=== PATIENT | male | born 1950 | race Caucasian/White ===

== ENCOUNTER 2025-05-27 11:43 | Inpatient (IN) | payer MEDICARE ==
[~2025-05-27] VITALS: Ht 182.9 cm; Wt 89.4 kg
[2025-05-27] MEDS ORDERED: INDO50CA92 PO (11:57)
[2025-05-27] MEDS ORDERED: ROSU10TA29 PO (11:57)
[2025-05-27] MEDS ORDERED: NORT25CA PO (11:57)
[2025-05-27] MEDS ORDERED: [UNRECOGNIZED DRUG - CODE] PO (11:57)
[2025-05-27] MEDS ORDERED: OLME20TA23 PO (11:57)
[2025-05-27] MEDS ORDERED: LAMO200T10 PO (11:57)
[2025-05-27 12:11] LABS: PLATELET COUNT (AUTO) 200 K/uL (152-348); RED BLOOD CELL COUNT(AUTO) 4.82 MIL/uL (4.06-5.63); RED CELL DISTRIBUTION WIDTH 15.1 % (12.1-16.2); WHITE BLOOD COUNT (AUTO) 5.2 K/uL (3.6-10.2)
[2025-05-27 12:19] LABS: CREATININE 1.0 mg/dL (0.6-1.3); SODIUM SERUM 140 mmol/L (136-145); UREA NITROGEN, BLOOD 22 mg/dL (7-18)
[2025-05-27] MEDS ORDERED: DILTIAZEM HCL 25 MG IV IV ONE (12:30)
[2025-05-27] MEDS ORDERED: DILTIAZEM HCL 25 MG IV ONE (12:32)
[2025-05-27] MEDS: DILTIAZEM HCL 25 MG IV IV ONE (12:39)
[2025-05-27 12:42] VITALS: BP 136/86
[2025-05-27] MEDS ORDERED: REMEDY ESSENTIAL ZINC PASTE 113 GM TP PRN (14:30)
[2025-05-27] MEDS ORDERED: MAGNESIUM HYDROXIDE 30 ML LIQUID UDC PO PRN (14:30)
[2025-05-27] MEDS ORDERED: ONDANSETRON 4 MG/2 ML VIAL IV PRN (14:30)
[2025-05-27] MEDS ORDERED: DOSING PER PHARMACY-ENOXAPARIN XX PRN (14:30)
[2025-05-27] MEDS: FUROSEMIDE 40 MG/4 ML VIAL IV SCH (15:15)
[2025-05-27] MEDS: DILTIAZEM HCL 30 MG TABLET PO SCH (15:15)
[2025-05-27 15:20] VITALS: BP 122/87; TEMP 98.4; O2SAT 96
[2025-05-27] MEDS: ACETAMINOPHEN 325 MG TABLET PO PRN (16:31)
[2025-05-27] MEDS: ENOXAPARIN SODIUM 100 MG/ML DISP.SYRIN SQ SCH (16:32)
[2025-05-27] MEDS ORDERED: ALBU6.7H9 IH (16:40)
[2025-05-27] MEDS ORDERED: ALBUTEROL SULFATE 8 GM HFA.AER.AD IH PRN (18:45)
[2025-05-27 19:45] VITALS: BP 114/68; TEMP 97.9; O2SAT 96
[2025-05-27] MEDS: ATORVASTATIN 20 MG TABLET PO SCH (20:39)
[2025-05-27] MEDS ORDERED: AMIODARONE HCL 150 MG/3 ML VIAL IV ONE ×2 (23:42→23:44)
[2025-05-27] MEDS: AMIODARONE HCL IV 150 MG in IV DEXTROSE 5% 100 ML IV ONE (23:53)
[2025-05-27 23:56] VITALS: BP 127/89; TEMP 98.6; O2SAT 95
[2025-05-28] MEDS: AMIODARONE HCL IV 450 MG in IV DEXTROSE 5% 250 ML IV PRN (00:24)
[2025-05-28] MEDS: ZOLPIDEM 5 MG TABLET PO PRN (02:12)
[2025-05-28 04:11] VITALS: BP 125/89; TEMP 97.5; O2SAT 100
[2025-05-28] MEDS: PANTOPRAZOLE SODIUM 40 MG TABLET.DR PO SCH (06:15)
[2025-05-28 07:21] LABS: PLATELET COUNT (AUTO) 196 K/uL (152-348); RED BLOOD CELL COUNT(AUTO) 4.85 MIL/uL (4.06-5.63); RED CELL DISTRIBUTION WIDTH 14.7 % (12.1-16.2); WHITE BLOOD COUNT (AUTO) 3.9 K/uL (3.6-10.2)
[2025-05-28 07:34] LABS: CREATININE 1.0 mg/dL (0.6-1.3); SODIUM SERUM 141 mmol/L (136-145); UREA NITROGEN, BLOOD 18 mg/dL (7-18)
[2025-05-28 07:42] VITALS: BP 124/89; TEMP 98; O2SAT 99
[2025-05-28] MEDS: LAMOTRIGINE 200 MG TABLET PO SCH (08:40)
[2025-05-28] MEDS ORDERED: NORTRIPTYLINE HCL 25 MG CAPSULE PO SCH (09:00)
[2025-05-28] MEDS: NORTRIPTYLINE HCL 25 MG CAPSULE PO SCH (09:04)
[2025-05-28] MEDS: DILTIAZEM HCL 60 MG TABLET PO SCH (11:19)
[2025-05-28 11:39] VITALS: BP 142/97; TEMP 97.8; O2SAT 100
[2025-05-28] MEDS ORDERED: DILTIAZEM HCL 30 MG TABLET PO SCH (12:00)
[2025-05-28 15:33] VITALS: BP 119/85; TEMP 97.9; O2SAT 98
[2025-05-28] MEDS ORDERED: INDOMETHACIN PO SCH (17:00)
[2025-05-28 17:22] VITALS: O2SAT 98
[2025-05-28] MEDS: INDOMETHACIN 25 MG CAPSULE PO SCH (17:34)
[2025-05-28 19:00] VITALS: BP 117/81; TEMP 98.7; O2SAT 93
[2025-05-29] VITALS (7 sets, daily range): BP systolic 115–141; BP diastolic 66–100; TEMP 97.8–98.3; O2SAT 95–100
[2025-05-29 06:59] LABS: CREATININE 1.1 mg/dL (0.6-1.3); SODIUM SERUM 140 mmol/L (136-145); UREA NITROGEN, BLOOD 22 mg/dL (7-18)
[2025-05-29] MEDS: DILTIAZEM HCL CD 240 MG CAP.SR.24H PO SCH (09:19)
[2025-05-29] MEDS: FUROSEMIDE 20 MG TABLET PO SCH (09:20)
[2025-05-29] MEDS: DAPAGLIFLOZIN PROPANEDIOL 10 MG TABLET PO SCH (09:21)
[2025-05-29] MEDS: APIXABAN 5 MG TABLET PO SCH (09:24)
[2025-05-29] MEDS: POTASSIUM CHLORIDE 20 MEQ POWDER PACKET GT ONE (10:13)
[2025-05-29] MEDS ORDERED: FURO20TA4 PO (11:53)
[2025-05-29] MEDS ORDERED: POTA8TAB3 PO (11:53)
[2025-05-29] MEDS ORDERED: DILT240C88 PO (11:53)
[2025-05-29] MEDS ORDERED: APIX5TAB PO (11:53)
[2025-05-29] MEDS ORDERED: DAPA10TA PO (11:53)
[2025-05-29] MEDS: ALBUTEROL SULFATE 1.25 MG/3 ML NEBU NEB PRN (13:31)
== END 2025-05-29 14:15 | disposition home or self-care (01) | DRG 291 ==
LOC: ER 11:43 → TELE3 13:53 → DOU3 23:37 → TELE-TD3 23:50 → TELE3 05-28 10:24
DX: I11.0 Hypertensive heart disease with heart failure (principal); I50.43 Acute on chronic combined systolic (congestive) and diastolic (congestive) heart failure; I48.92 Unspecified atrial flutter; E78.5 Hyperlipidemia, unspecified; G50.0 Trigeminal neuralgia; Z98.890 Other specified postprocedural states; Z79.899 Other long term (current) drug therapy; M19.90 Unspecified osteoarthritis, unspecified site; I35.0 Nonrheumatic aortic (valve) stenosis; Z96.653 Presence of artificial knee joint, bilateral; Z79.01 Long term (current) use of anticoagulants
CPT/HCPCS: 36415; 71045; 83735; 84100; 84443; 84484; 85025; 93005; 93307; G0378; J0282; J1650; J1938; J3490; J3535; J7050